=== PATIENT | female | born 1995 | race African-American/Black ===

== ENCOUNTER 2024-11-05 13:37 | Inpatient (IN) | payer OTHER ==
[~2024-11-05] VITALS: Ht 160 cm; Wt 54.4 kg
[2024-11-05 14:52] LABS: BASOPHILS % 0.5 % (0.0-2.0); EOSINOPHILS % 0.4 % (0.0-5.0); HEMATOCRIT. 32.7 % (36.0-48.0); HEMOGLOBIN. 11.0 g/dL (12.0-16.0); LYMPHOCYTES % 26.2 % (20.0-50.0); MEAN PLATELET VOLUME 9.7 fl (7.4-10.4); MONOCYTES % 12.4 % (2.0-8.0); NEUTROPHILS % 60.5 % (40.0-76.0); PLATELET 283 x1000/uL (130-400); RED BLOOD CELL COUNT 3.64 mill/uL (4.2-5.4); RED CELL DISTRIBUTION WIDTH 14.4 % (11.6-14.6)
[2024-11-05 14:56] LABS: CREATININE 0.7 mg/dL (0.6-1.0); UREA NITROGEN BLOOD 11 mg/dL (9-23)
[2024-11-05 15:10] LABS: B-HCG QUANTITATIVE 6131 mIU/mL (<6)
[2024-11-05 15:11] LABS: INR 1.0
[2024-11-05] MEDS ORDERED: FENTANYL CITRATE/PF 50MCG/ML 2ML VIAL ONE (19:51)
[2024-11-05] MEDS ORDERED: MIDAZOLAM HCL 2 MG/2 ML VIAL ONE ×2 (19:52→20:42)
[2024-11-05] MEDS ORDERED: ROCURONIUM BROMIDE 10MG/ML VIAL 5ML IV ONE (19:58)
[2024-11-05] MEDS ORDERED: HYDROMORPHONE HCL/PF 1MG/ML INJ ONE (20:25)
[2024-11-05] MEDS ORDERED: SKIN ADHESIVE 0.7 GM EA TOP ONE (20:44)
[2024-11-05] MEDS ORDERED: NALOXONE HCL 0.4MG/ML VIAL IV PRN (21:15)
[2024-11-05] MEDS ORDERED: HYDRALAZINE 20MG/ML VIAL IV PRN (21:15)
[2024-11-05] MEDS ORDERED: HYDROMORPHONE HCL/PF 1MG/ML INJ IV PRN ×2 (21:15)
[2024-11-05] MEDS ORDERED: GLYCOPYRROLATE 0.2 MG/ML 2ML VIAL IV PRN (21:15)
[2024-11-05] MEDS ORDERED: DEXAMETHASONE 4MG/ML 1ML VIAL IV PRN (21:15)
[2024-11-05] MEDS ORDERED: LABETALOL 5MG/ML 4ML INJ IV PRN (21:15)
[2024-11-05] MEDS ORDERED: ONDANSETRON HCL 4MG/2ML INJ IV PRN (21:15)
[2024-11-05] MEDS: HYDROMORPHONE HCL/PF 1MG/ML INJ IV PRN (21:22)
[2024-11-05] MEDS ORDERED: KETOROLAC 30MG/ML VIAL IV NR (21:45)
[2024-11-05] MEDS: ACETAMINOPHEN 1000MG/100ML 100 ML IV NR (21:52)
[2024-11-05] MEDS ORDERED: DEXT 5%/0.45% NACL KCL 20MEQ/L 1,000 ML IV SCH (22:30)
[2024-11-05 22:53] VITALS: BP 105/57; PULSE 93; RESP 14; TEMP 36.3624
[2024-11-06] MEDS: DEXT 5%/0.45% NACL KCL 20MEQ/L 1,000 ML IV SCH (01:28)
[2024-11-06] MEDS: CEFAZOLIN 1000MG PREMIX 50 ML IV SCH ×2 (01:29→20:19)
[2024-11-06] MEDS: MORPHINE SULFATE 2 MG/ML INJ (NOT FOR IM USE) IV PRN (01:50)
[2024-11-06 05:09] LABS: CLARITY URINE CLEAR (CLEAR); COLOR URINE YELLOW (YELLOW); GLUCOSE URINE TRACE (NEGATIVE); KETONES URINE 3+ (NEGATIVE); LEUKOCYTE ESTERASE URINE NEGATIVE (NEGATIVE); NITRITE URINE NEGATIVE (NEGATIVE); OCCULT BLOOD URINE 1+ (NEGATIVE); PH URINE 6.0 (4.5-8.0); PROTEIN URINE NEGATIVE (NEGATIVE); SPECIFIC GRAVITY URINE 1.023 (1.005-1.030); UROBILINOGEN URINE 1.0 E.U./dL (0.2-1.0)
[2024-11-06 05:45] LABS: BASOPHILS % 0.1 % (0.0-2.0); EOSINOPHILS % 0.0 % (0.0-5.0); HEMATOCRIT. 28.8 % (36.0-48.0); HEMOGLOBIN. 9.5 g/dL (12.0-16.0); LYMPHOCYTES % 7.3 % (20.0-50.0); MEAN PLATELET VOLUME 9.8 fl (7.4-10.4); MONOCYTES % 5.9 % (2.0-8.0); NEUTROPHILS % 86.7 % (40.0-76.0); PLATELET 225 x1000/uL (130-400); RED BLOOD CELL COUNT 3.18 mill/uL (4.2-5.4); RED CELL DISTRIBUTION WIDTH 14.7 % (11.6-14.6)
[2024-11-06 06:09] LABS: CREATININE 0.6 mg/dL (0.6-1.0)
[2024-11-06 06:10] LABS: UREA NITROGEN BLOOD 7 mg/dL (9-23)
[2024-11-06 07:39] LABS: BACTERIA URINE 1+; RBC URINE 0-2 /hpf (0-2); SQUAMOUS EPITHELIAL CELL URINE FEW /lpf (RARE/1+); YEAST URINE NONE SEEN
[2024-11-06 08:00] VITALS: BP 103/63; PULSE 72; RESP 16; TEMP 36.7; O2SAT 96
[2024-11-06] MEDS: ONDANSETRON HCL 4MG/2ML INJ IV PRN (11:59)
[2024-11-06 12:00] VITALS: BP 97/64; PULSE 85; RESP 16; TEMP 36.7; O2SAT 95
[2024-11-06] MEDS ORDERED: IBUPROFEN 800MG TABLET PO PRN (16:00)
[2024-11-06] MEDS: ACETAMINOPHEN WITH CODEINE 300/30MG TABLET PO PRN (16:11)
[2024-11-06 20:00] VITALS: BP 97/55; PULSE 87; RESP 16; TEMP 36.9; O2SAT 94
[2024-11-06] MEDS: DOCUSATE SODIUM 100MG CAPSULE PO SCH (20:22)
[2024-11-06] MEDS: ACETAMINOPHEN WITH CODEINE 300/30MG TABLET PO SCH (22:00)
[2024-11-06] MEDS: IBUPROFEN 800MG TABLET PO SCH (23:42)
[2024-11-07] VITALS: BP 98/53; PULSE 96; RESP 18; TEMP 36.1; O2SAT 99
[2024-11-07 04:00] VITALS: BP 86/58; PULSE 78; RESP 18; TEMP 36.9; O2SAT 98
[2024-11-07 08:00] VITALS: BP 101/54; PULSE 75; RESP 18; TEMP 36.8; O2SAT 100
[2024-11-07 12:00] VITALS: BP 104/70; PULSE 92; RESP 18; TEMP 36.9; O2SAT 99
[2024-11-07 12:30] LABS: BASOPHILS % 0.3 % (0.0-2.0); EOSINOPHILS % 0.6 % (0.0-5.0); HEMATOCRIT. 28.3 % (36.0-48.0); HEMOGLOBIN. 9.5 g/dL (12.0-16.0); LYMPHOCYTES % 23.4 % (20.0-50.0); MEAN PLATELET VOLUME 9.6 fl (7.4-10.4); MONOCYTES % 7.3 % (2.0-8.0); NEUTROPHILS % 68.4 % (40.0-76.0); PLATELET 220 x1000/uL (130-400); RED BLOOD CELL COUNT 3.13 mill/uL (4.2-5.4); RED CELL DISTRIBUTION WIDTH 14.6 % (11.6-14.6)
[2024-11-07 16:00] VITALS: BP 103/65; PULSE 77; RESP 17; TEMP 36.4; O2SAT 99
[2024-11-07 20:00] VITALS: BP 90/51; PULSE 91; RESP 18; TEMP 37.1; O2SAT 98
[2024-11-08] VITALS: BP 101/63; PULSE 78; RESP 18; TEMP 36.8; O2SAT 97
[2024-11-08 06:05] VITALS: BP 90/52; PULSE 85; RESP 18; TEMP 36.8
[2024-11-08 08:00] VITALS: BP 94/55; PULSE 91; RESP 18; TEMP 36.3; O2SAT 96
[2024-11-08 12:00] VITALS: BP 98/60; PULSE 82; RESP 17; TEMP 36.6; O2SAT 99
[2024-11-08 16:30] VITALS: BP 117/73; PULSE 83; RESP 18; TEMP 36.3; O2SAT 99
[2024-11-08] MEDS ORDERED: IBUP-2030 PO (18:21)
[2024-11-08] MEDS ORDERED: T3 PO (18:21)
[2024-11-08] MEDS ORDERED: DOCU-422 PO (18:21)
[2024-11-08 18:28] VITALS: BP 117/67; PULSE 83; TEMP 97.4; O2SAT 99
== END 2024-11-08 20:05 | disposition home or self-care (01) | DRG 819 ==
LOC: ER 13:37 → 8EST 21:17 → EDBEDREQSVC 22:12 → EDBEDREQ 22:12 → EDBEDREQTM 22:12
PROVIDERS: ADMIT Obstetrics & Gynecology; ATTEND Obstetrics & Gynecology
PROC: 10D20ZZ Extraction of Products of Conception, Ectopic, Open Approach (ICD-10-PCS; principal; 2024-11-05)
PROC: 0UB70ZZ Excision of Bilateral Fallopian Tubes, Open Approach (ICD-10-PCS; 2024-11-05)
DX: O00.102 Left tubal pregnancy without intrauterine pregnancy (principal); Z79.899 Other long term (current) drug therapy
CPT/HCPCS: 36415; 76801; 80048; 81003; 82962; 84702; 85025; 86850; 86900; 88302; 97161; 99291; A4606; J0690; J1171; J2250; J2270; J2405; J3010; J3490; J7030; J7120; J0131